=== PATIENT | female | born 2000 | race Caucasian/White ===

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

== ENCOUNTER 2020-06-13 21:40 | Emergency (ER) | payer SELFPAY ==
[~2020-06-13] VITALS: Ht 162.5 cm; Wt 58.8 kg
--- NOTE | 2020-06-13 21:52 | ED Abdominal Pain ---
General Stated Complaint: ABD/BACK PAIN,FAINT,DIZZINESS Source of Information: Patient Exam Limitations: No Limitations History of Present Illness Date Seen by Provider: Jun 13, 2020 Time Seen by Provider: 21:45 Initial Comments Patient is a 20-year-old female who presents to the emergency department today with a chief complaint of lower abdominal cramping. Patient states she had onset of symptoms 4 days ago. Patient states she had Amharic food on Tuesday night and was concerned that she might have food poisoning. Her symptoms started the following day. Patient describes the pain as coming and going. She states she started her period today and at first she thought it was menstrual cramps but she has never had pain like this before. Patient states the pain has become worse today that its caused her to feel faint and dizzy. Patient states she also has some discomfort to her left thigh. She denies states she has had some intermittent nausea but no vomiting, diarrhea. No problems with bowel or bladder. No black or tarry stools. Patient states that it does hurt in her lower abdomen to have a bowel movement and to urinate but she denies dysuria specifically. No abnormal vaginal discharge. Patient is not sexually active. She is not on control. She denies any fevers but states that she has had some cold chills. Patient tells me that she has a fraternal twin sister that was recently diagnosed with ovarian cyst. She was concerned with that. She states that the left side of her lower abdomen hurts more than the right side. Patient states that her grandmother gave her 2 Ecotrin tablets earlier in the evening and it has not helped her pain. All other review of systems reviewed and negative except as stated. Timing/Duration: 3-4 Days Severity/Quality: Cramping Location: Suprapubic Radiation: No Radiation Activities at Onset: None Associated Symptoms: Denies Symptoms Allergies and Home Medications Allergies Coded Allergies: No Known Drug Allergies (Unverified , 06/13/20) Patient Home Medication List Home Medication List Reviewed: Yes Review of Systems Review of Systems Constitutional: see HPI EENTM: No Symptoms Reported Respiratory: No Symptoms Reported Cardiovascular: No Symptoms Reported Gastrointestinal: Abdominal Pain Genitourinary: No Symptoms Reported Musculoskeletal: no symptoms reported Skin: no symptoms reported All Other Systems Reviewed Negative Unless Noted: Yes Physical Exam Vital Signs Vital Signs - First Documented 06/13/20 21:42 Temp 37.1 Pulse 107 Resp 18 B/P (MAP) 156/83 (107) Pulse Ox 99 O2 Delivery Room Air Capillary Refill : Height/Weight/BMI Height: '" Weight: lbs. oz. kg; BMI Method: General Appearance: WD/WN, mild distress HEENT: PERRL/EOMI Respiratory: lungs clear, normal breath sounds, no respiratory distress Cardiovascular: regular rate, rhythm Gastrointestinal: soft, abnormal bowel sounds (hypoactive), tenderness (Tenderness at McBurney's point, patient states that the pain is similar with direct palpation as well as moderate rebound; patient has more pronounced tenderness in the left pelvis than she does the right) Extremities: normal range of motion, non-tender, normal inspection Neurologic/Psychiatric: alert, normal mood/affect, oriented x 3 Skin: normal color, warm/dry Progress/Results/Core Measures Results/Orders Lab Results Laboratory Tests Test 06/13/20 21:44 06/13/20 21:55 Range/Units Urine Color YELLOW Urine Clarity CLEAR Urine pH 7.0 5-9 Urine Specific [place] 1.020 1.016-1.022 Urine Protein NEGATIVE NEGATIVE Urine Glucose (UA) NEGATIVE NEGATIVE Urine Ketones TRACE H NEGATIVE Urine Nitrite NEGATIVE NEGATIVE Urine Bilirubin NEGATIVE NEGATIVE Urine Urobilinogen 0.2 < = 1.0 MG/DL Urine Leukocyte Esterase NEGATIVE NEGATIVE Urine RBC (Auto) NEGATIVE NEGATIVE Urine RBC 0-2 /HPF Urine WBC 2-5 /HPF Urine Squamous Epithelial Cells 10-25 H /HPF Urine Crystals NONE /LPF Urine Bacteria TRACE /HPF Urine Casts NONE /LPF Urine Mucus LARGE H /LPF Urine Culture Indicated NO Urine Test NEGATIVE NEGATIVE White Blood Count 12.5 H 4.3-11.0 10^3/uL Red Blood Count 3.99 L 4.35-5.85 10^6/uL Hemoglobin 10.3 L 11.5-16.0 G/DL Hematocrit 32 L 35-52 % Mean Corpuscular Volume 80 80-99 FL Mean Corpuscular Hemoglobin 26 25-34 PG Mean Corpuscular Hemoglobin Concent 32 32-36 G/DL Red Cell Distribution Width 13.0 10.0-14.5 % Platelet Count 405 H 130-400 10^3/uL Mean Platelet Volume 9.8 7.4-10.4 FL Immature Granulocyte % (Auto) 0 % Neutrophils (%) (Auto) 63 42-75 % Lymphocytes (%) (Auto) 27 12-44 % Monocytes (%) (Auto) 8 0-12 % Eosinophils (%) (Auto) 1 0-10 % Basophils (%) (Auto) 1 0-10 % Neutrophils # (Auto) 7.9 H 1.8-7.8 X 10^3 Lymphocytes # (Auto) 3.4 1.0-4.0 X 10^3 Monocytes # (Auto) 1.1 H 0.0-1.0 X 10^3 Eosinophils # (Auto) 0.1 0.0-0.3 10^3/uL Basophils # (Auto) 0.1 0.0-0.1 10^3/uL Immature Granulocyte # (Auto) 0.0 0.0-0.1 10^3/uL Sodium Level 138 135-145 MMOL/L Potassium Level 3.7 3.6-5.0 MMOL/L Chloride Level 103 98-107 MMOL/L Carbon Dioxide Level 24 21-32 MMOL/L Anion Gap 11 5-14 MMOL/L Blood Urea Nitrogen 13 7-18 MG/DL Creatinine 0.69 0.60-1.30 MG/DL Estimat Glomerular Filtration Rate > 60 BUN/Creatinine Ratio 19 Glucose Level 93 70-105 MG/DL Calcium Level 9.3 8.5-10.1 MG/DL My Orders Orders - JESUS GRIMM MD Ua Culture If Indicated (06/13/20 21:58) Hcg,Qualitative Urine (06/13/20 21:58) Cbc With Automated Diff (06/13/20 21:58) Basic Metabolic Panel (06/13/20 21:58) Ct Abdomen/Pelvis W (06/13/20 21:58) Ns Iv 1000 Ml (Sodium Chloride 0.9%) (06/13/20 22:00) Ketorolac Injection (Toradol Injection) (06/13/20 22:00) Iohexol Injection (Omnipaque 350 Mg/Ml 1 (06/13/20 22:15) Received Contrast (Hold Metformin- Contr (06/13/20 22:15) Sodium Chloride Flush (Catheter Flush Sy (06/13/20 22:15) Ns (Ivpb) (Sodium Chloride 0.9% Ivpb Bag (06/13/20 22:15) Urine Bedside (06/13/20 22:04) Medications Given in ED Current Medications Medications Dose Ordered Sig/Vianney Route Start Time Stop Time Status Last Admin Dose Admin Iohexol 100 ml ONCE ONCE IV 06/13/20 22:15 06/13/20 22:16 DC 06/13/20 22:21 75 ML Ketorolac Tromethamine 15 mg ONCE ONCE IVP 06/13/20 22:00 06/13/20 22:01 DC 06/13/20 22:07 15 MG Sodium Chloride 10 ml NEEDED PRN IV 06/13/20 22:15 06/13/20 22:22 10 ML Sodium Chloride 100 ml ONCE ONCE IV 06/13/20 22:15 06/13/20 22:16 DC 06/13/20 22:21 100 ML Vital Signs/I&O 06/13/20 21:42 Temp 37.1 Pulse 107 Resp 18 B/P (MAP) 156/83 (107) Pulse Ox 99 O2 Delivery Room Air Progress Progress Note : Time: 22:00 Progress Note patient's bedside test is negative [address] results show no acute findings of the solid abdominal organs with a contracted gallbladder. She does have a small amount of liquid stool in the proximal colon as well as some mild small bowel wall thickening with some mild Bigg fluid distended small bowel. She has a normal-appearing appendix. Mild nonspecific prominence of the cervix. She does not have any abdominopelvic fluid collections. Patient has a mildly elevated white blood cell count with a normal BMP. Urine is normal as well. Patient is currently rating her pain at a "7". She states the Toradol has not really helped her at all. She does not have a concrete truck driver and cannot get a concrete truck driver to get her home. Going to send the patient home with the hydrocodone take-home pack. I have strongly advised that she call scheduling in the morning to get in and have a pelvic ultrasound in the morning. She is also going to take 800 mg of ibuprofen 3 times a day. I think that she needs reevaluated within 12 to 24 hours. She does not have any obvious large ovarian cyst but CT is not the best imaging study for this therefore the pelvic ultrasound is advised. Patient verbalized understanding and is agreeable with the plan of care. All questions have been sought and answered. Patient will be discharged to home. I discussed with the technology coach in [place] the patient coming in in the morning for an outpatient pelvic ultrasound. The patient will call between 7 and 7:30 in the morning to have her ultrasound scheduled at about 9 AM. This has been communicated to the patient. Departure Impression Primary Impression: Abdominal pain Qualified Codes: R10.32 - Left lower quadrant pain Disposition: 01 HOME, SELF-CARE Condition: Stable Departure-Patient Inst. Decision time for Depature: 23:22 Referrals: LOPEZ ZELAYA MD (PCP/Family) Primary Care Physician Patient Instructions: Abdominal Pain, Adult ED Add. Discharge Instructions: Call the Radiology Office in the morning between 7 and 7:30am for a pelvic ultrasound [phone] Take the Hydrocodone for pain, 1 every 4-6 hours. This medication may make you sleepy. Do not drive and take this medication. If you have a fever, vomiting or worse pain, come back to the Emergency Room for re-evaluation. You can also take over the counter ibuprofen 3 or 4 pills (600-800mg) every 8 hours with food for pain. JESUS GRIMM MD Jun 13, 2020 21:52
[2020-06-13] MEDS ORDERED: KETOROLAC 30 MG/ML VIAL IVP ONE (22:00)
[2020-06-13] MEDS ORDERED: NS IV 1000 ML 1,000 ML IV SCH (22:00)
[2020-06-13 22:02] LABS: BACTERIA,URINE TRACE /HPF; BILIRUBIN,URINE NEGATIVE (NEGATIVE); CLARITY,URINE CLEAR; COLOR,URINE YELLOW; GLUCOSE, URINE (UA) NEGATIVE (NEGATIVE); KETONES,URINE TRACE (NEGATIVE); LEUKOCYTE ESTERASE ,URINE NEGATIVE (NEGATIVE); NITRITE,URINE NEGATIVE (NEGATIVE); PROTEIN,URINE NEGATIVE (NEGATIVE); RBC,URINE 0-2 /HPF
[2020-06-13 22:05] LABS: BASOPHILS # (AUTO) 0.1 10^3/uL (0.0-0.1); BASOPHILS % (AUTO) 1 % (0-10); EOSINOPHILS # (AUTO) 0.1 10^3/uL (0.0-0.3); EOSINOPHILS % (AUTO) 1 % (0-10); HEMATOCRIT 32 % (35-52); HEMOGLOBIN 10.3 G/DL (11.5-16.0); LYMPHOCYTES # (AUTO) 3.4 X 10^3 (1.0-4.0); LYMPHOCYTES % (AUTO) 27 % (12-44); MEAN CORPUSCULAR HEMOGLOBIN 26 PG (25-34); MEAN CORPUSCULAR HGB CONC 32 G/DL (32-36); MEAN CORPUSCULAR VOLUME 80 FL (80-99); MEAN PLATELET VOLUME 9.8 FL (7.4-10.4); MONOCYTES # (AUTO) 1.1 X 10^3 (0.0-1.0); MONOCYTES % (AUTO) 8 % (0-12); NEUTROPHILS # (AUTO) 7.9 X 10^3 (1.8-7.8); NEUTROPHILS % (AUTO) 63 % (42-75); PLATELET COUNT 405 10^3/uL (130-400); WHITE BLOOD COUNT 12.5 10^3/uL (4.3-11.0)
[2020-06-13] MEDS ORDERED: HOLD METFORMIN - RECEIVED CONTRAST 20 ML VIAL IV SCH (22:15)
[2020-06-13] MEDS ORDERED: NS 100 ML (IVPB) BAG IV ONE (22:15)
[2020-06-13] MEDS ORDERED: CATHETER FLUSH 10 ML SYR IV PRN (22:15)
[2020-06-13] MEDS ORDERED: IOHEXOL 350 MG/ML 100 ML (OMNIPAQUE 350) VIAL IV ONE (22:15)
[2020-06-13 22:22] LABS: CHLORIDE 103 MMOL/L (98-107); POTASSIUM 3.7 MMOL/L (3.6-5.0); SODIUM 138 MMOL/L (135-145)
[2020-06-13 22:23] LABS: BUN/CREATININE RATIO 19; CALCIUM 9.3 MG/DL (8.5-10.1); CARBON DIOXIDE 24 MMOL/L (21-32); CREATININE SERUM 0.69 MG/DL (0.60-1.30); GFR ESTIMATED > 60; GLUCOSE 93 MG/DL (70-105)
[2020-06-13 23:30] VITALS: BP 134/84
[2020-06-13] MEDS ORDERED: RX-HYDROCODONE/APAP 5/325 MG #4 TAB PK PO PRN (23:30)
--- NOTE | 2020-06-14 07:25 | Diagnostic Imaging Report ---
PROCEDURE: CT abdomen and pelvis with contrast. TECHNIQUE: Multiple contiguous axial images were obtained through the abdomen and pelvis after administration of intravenous contrast. Auto Exposure Controls were utilized during the CT exam to meet ALARA standards for radiation dose reduction. All CT scans use one or more of the following dose optimizing techniques: automated exposure control, MA and/or KvP adjustment based on patient size and exam type or iterative reconstruction. Indication: Left lower quadrant pain for 3 days, pelvic pain. Comparison: None. Discussion: Lung bases are well-aerated. Normal heart size. No pleural or pericardial fluid. The gallbladder is contracted. The liver, stomach, spleen, and adrenal glands are unremarkable. There is fatty atrophy of the pancreas which is considered advanced for age and is of uncertain clinical significance. No renal stone, mass, hydronephrosis. Cyst is noted within the left kidney measuring 2 cm, benign. Aorta is normal in caliber. The appendix is normal. Uterus and urinary bladder are unremarkable. Borderline thick-walled small bowel loops, possible enteritis. No ascites or pathologically enlarged lymph nodes identified. No acute osseous abnormality identified. Impression: 1. Fatty atrophy of the pancreas which is advanced for age. This is of uncertain etiology or clinical significance. Recommend clinical correlation. 2. Mildly thick-walled small bowel loops without obstruction. This could represent mild enteritis. 3. Agree with preliminary report. Dictated by: Dictated on workstation # [id number]
== END 2020-06-13 23:30 | disposition home or self-care (01) ==
LOC: EDUNIT# 21:40 → ER FS 21:41
DX: R10.32 Left lower quadrant pain (principal)
CPT/HCPCS: 36415; 74177; 80048; 81000; 84703; 85025

== ENCOUNTER → 2020-06-14 | Outpatient (CLI) | payer SELFPAY ==
--- NOTE | 2020-06-14 10:43 | Diagnostic Imaging Report ---
PROCEDURE: US Non-ob pelvis comp/trans. TECHNIQUE: Multiple realtime grayscale images were obtained of the pelvis in various projections endovaginally. Transabdominal imaging was also performed. INDICATION: Pelvic and abdominal pain with fever The anteverted uterus measures 7.9 x 4.5 x 5.5 cm with normal endometrial thickness of 0.9 cm. There is normal blood flow to both ovaries. No adnexal mass is seen. There is mild pelvic free fluid. IMPRESSION: Mild pelvic free fluid may be physiologic. Otherwise, no ultrasound evidence of pelvic abnormality is identified. Dictated by: Dictated on workstation # [id number]
== END ==
LOC: RAD 08:58
PROVIDERS: ATTEND Emergency Medicine
DX: R10.9 Unspecified abdominal pain (principal); R10.2 Pelvic and perineal pain; R18.8 Other ascites
CPT/HCPCS: 76830; 76856

== ENCOUNTER → 2020-07-22 | Outpatient (CLI) | payer SELFPAY | LOC: LAB FS 10:28 | PROVIDERS: ATTEND Obstetrics & Gynecology | DX: R10.2 Pelvic and perineal pain (principal) | CPT/HCPCS: 36415; 84702 ==

== ENCOUNTER 2020-08-23 02:48 | Emergency (ER) | payer SELFPAY ==
[~2020-08-23] VITALS: Ht 162.5 cm; Wt 61.2 kg
[2020-08-23] MEDS ORDERED: morphine INJ 10 MG/ML 1ML (SYR OR VIAL) IM STA (03:08)
[2020-08-23] MEDS ORDERED: KETOROLAC 60 MG/2 ML VIAL IM STA (03:08)
[2020-08-23] MEDS ORDERED: LIDOCAINE 1% INJ 20 ML 20 ML VIAL INJ STA (03:23)
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
[2020-08-23] MEDS ORDERED: RX-AMOX/CLAV. (AUGMENTIN) 500MG TAB PPK#2 PO STA (04:35)
[2020-08-23] MEDS ORDERED: AMOX1TAB12 PO (04:35)
[2020-08-23 04:42] VITALS: BP 126/72
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
== END 2020-08-23 04:42 | disposition home or self-care (01) ==
LOC: EDUNIT# 02:48 → ER FS 02:52
DX: S01.312A Laceration without foreign body of left ear, initial encounter (principal); S50.02XA Contusion of left elbow, initial encounter; S40.022A Contusion of left upper arm, initial encounter; S10.91XA Abrasion of unspecified part of neck, initial encounter; V89.2XXA Person injured in unspecified motor-vehicle accident, traffic, initial encounter
CPT/HCPCS: 73060; 73080

== ENCOUNTER 2023-02-17 12:56 | Emergency (ER) | payer SELFPAY ==
[~2023-02-17] VITALS: Ht 162.5 cm; Wt 80.2 kg
[~2023-02-17 12:56] MED LIST: AMOX1TAB12 PO
--- NOTE | 2023-02-17 13:15 | ED Abdominal Pain ---
General Stated Complaint: ABD PAIN | Source of Information: Patient Exam Limitations: No Limitations History of Present Illness Date Seen by Provider: Feb 17, 2023 Time Seen by Provider: 13:13 Initial Comments Patient is a 23-year-old female presents ED with left lower quad abdominal pain. This pain started last Tuesday. Pain is described as sharp and stabbing. This pain intensified earlier this week. She states she went to [facility] due to the continuous worsening pain. Pain does not radiate. She received a ultrasound on Tuesday which showed a hemorrhagic cyst. This pain has intensified. She reports nausea without vomiting. No urinary symptoms or current vaginal bleeding. She did receive a Toradol shot. She followed back up today and felt like she was mistreated. She states someone prescribed her Percocet which she has taken with ibuprofen with very minimal improvement. She denies any fever, chills, chest pain, shortness of breath, headache, dizziness. History of ruptured cyst in the past. She does report some wet frequent vaginal discharge. No odor or vaginal bleeding. Allergies and Home Medications Allergies Coded Allergies: morphine (Verified Allergy, Mild, TOUNGE NUMBNESS, 02/17/23) Patient Home Medication List Home Medication List Reviewed: Yes Amoxicillin/Potassium Clav (Amox Tr-K Clv 875-125 mg Tab) 1 Each Tablet, 1 EACH PO BID Prescribed by: HUGO MORALES on 08/23/20 0435 Hydrocodone/Acetaminophen (Hydrocodone-Acetamin 5-325 mg) 5 Mg-325 Mg Tablet, 1 TAB PO Q4H PRN for PAIN-MODERATE (5-7) Prescribed by: KRISH COX on 02/17/23 5799 Metronidazole (Metronidazole) 500 Mg Tablet, 500 MG PO BID Prescribed by: KRISH COX on 02/17/23 1458 Review of Systems Review of Systems Constitutional: No chills, No diaphoresis, No fever, No malaise, No weakness Respiratory: Denies Cough, Denies Orthopnea Gastrointestinal: Abdominal Pain; Denies Diarrhea; Nausea; Denies Vomiting Genitourinary: Denies Burning, Denies Discharge, Denies Drainage, Denies Frequency; Other Musculoskeletal: No back pain, No joint pain Skin: No change in color, No change in hair/nails All Other Systems Reviewed Negative Unless Noted: Yes Past Lpjqmlo-Hudasp-Vfvpoi Hx Past Medical History Surgeries: No Respiratory: No Cardiac: No Neurological: No Reproductive Disorders: Yes Female Reproductive Disorders: Menstrual Problems Genitourinary: Yes (Hydrosalpinx) Gastrointestinal: No Musculoskeletal: No Endocrine: No HEENT: No Cancer: No Psychosocial: No Integumentary: No Blood Disorders: No Physical Exam Vital Signs Vital Signs - First Documented 02/17/23 13:03 Temp 36.6 Pulse 91 Resp 16 B/P (MAP) 150/86 (107) Pulse Ox 100 O2 Delivery Room Air Capillary Refill : Height/Weight/BMI Height: '" Weight: lbs. oz. kg; 23.00 BMI Method: General Appearance: WD/WN, no apparent distress HEENT: PERRL/EOMI, normal ENT inspection, TMs normal, pharynx normal Neck: non-tender, full range of motion, supple Respiratory: chest non-tender, lungs clear, normal breath sounds, no respiratory distress, no accessory muscle use Cardiovascular: regular rate, rhythm, no edema, no gallop, no JVD Gastrointestinal: normal bowel sounds, soft, no organomegaly, tenderness (Left lower quadrant tenderness. 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, no motor/sensory deficits, alert, normal mood/affect, oriented x 3 Skin: normal color, warm/dry Procedures/Interventions Suture Size: 4-0 Progress/Results/Core Measures Results/Orders Lab Results Laboratory Tests Test 02/17/23 13:15 02/17/23 13:33 02/17/23 13:34 Range/Units White Blood Count 15.9 H 4.3-11.0 10^3/uL Red Blood Count 4.38 3.80-5.11 10^6/uL Hemoglobin 13.4 11.5-16.0 g/dL Hematocrit 40 35-52 % Mean Corpuscular Volume 90 80-99 fL Mean Corpuscular Hemoglobin 31 25-34 pg Mean Corpuscular Hemoglobin Concent 34 32-36 g/dL Red Cell Distribution Width 11.5 10.0-14.5 % Platelet Count 435 H 130-400 10^3/uL Mean Platelet Volume 9.3 9.0-12.2 fL Immature Granulocyte % (Auto) 0 % Neutrophils (%) (Auto) 73 42-75 % Lymphocytes (%) (Auto) 19 12-44 % Monocytes (%) (Auto) 7 0-12 % Eosinophils (%) (Auto) 0 0-10 % Basophils (%) (Auto) 1 0-10 % Neutrophils # (Auto) 11.6 H 1.8-7.8 10^3/uL Lymphocytes # (Auto) 3.1 1.0-4.0 10^3/uL Monocytes # (Auto) 1.1 H 0.0-1.0 10^3/uL Eosinophils # (Auto) 0.0 0.0-0.3 10^3/uL Basophils # (Auto) 0.1 0.0-0.1 10^3/uL Immature Granulocyte # (Auto) 0.0 0.0-0.1 10^3/uL Neutrophils % (Manual) 76 % Lymphocytes % (Manual) 20 % Monocytes % (Manual) 2 % Eosinophils % (Manual) 0 % Basophils % (Manual) 0 % Band Neutrophils 1 % Reactive Lymphocytes 1 % Blood Morphology Comment NORMAL Sodium Level 135 135-145 MMOL/L Potassium Level 3.7 3.6-5.0 MMOL/L Chloride Level 104 98-107 MMOL/L Carbon Dioxide Level 20 L 21-32 MMOL/L Anion Gap 11 5-14 MMOL/L Blood Urea Nitrogen 10 7-18 MG/DL Creatinine 0.87 0.60-1.30 MG/DL Estimat Glomerular Filtration Rate 96 BUN/Creatinine Ratio 11 Glucose Level 89 70-105 MG/DL Calcium Level 9.9 8.5-10.1 MG/DL Corrected Calcium 8.5-10.1 MG/DL Total Bilirubin 0.4 0.1-1.0 MG/DL Aspartate Amino Transf (AST/SGOT) 29 5-34 U/L Alanine Aminotransferase (ALT/SGPT) 27 0-55 U/L Alkaline Phosphatase 61 40-136 U/L Total Protein 7.9 6.4-8.2 GM/DL Albumin 4.6 H 3.2-4.5 GM/DL Lipase 8 8-78 U/L Urine Color YELLOW Urine Clarity CLEAR Urine pH 7.0 5-9 Urine Specific [place] 1.015 L 1.016-1.022 Urine Protein NEGATIVE NEGATIVE Urine Glucose (UA) NEGATIVE NEGATIVE Urine Ketones NEGATIVE NEGATIVE Urine Nitrite NEGATIVE NEGATIVE Urine Bilirubin NEGATIVE NEGATIVE Urine Urobilinogen 0.2 < = 1.0 MG/DL Urine Leukocyte Esterase 1+ H NEGATIVE Urine RBC (Auto) NEGATIVE NEGATIVE Urine RBC NONE /HPF Urine WBC 2-5 /HPF Urine Squamous Epithelial Cells 2-5 /HPF Urine Crystals NONE /LPF Urine Bacteria FEW H /HPF Urine Casts NONE /LPF Urine Mucus NEGATIVE /LPF Urine Culture Indicated YES Urine Test NEGATIVE NEGATIVE Micro Results Microbiology 02/17/23 Wet Prep - Final, Complete My Orders Orders - CARMELO DE ANDA PA Ua Culture If Indicated (02/17/23 12:59) Hcg,Qualitative Urine (02/17/23 12:59) Cbc And Automated Diff (02/17/23 13:11) Comprehensive Metabolic Panel (02/17/23 13:11) Lipase (02/17/23 13:11) Fentanyl Injection (Fentanyl Injection (02/17/23 13:11) Ns Iv 1000 Ml (Ns Iv 1000 Ml) (02/17/23 13:11) Wet Prep (02/17/23 13:15) Neisseria Gonorrhea Swab (02/17/23 13:15) Chlamydia Trachomatis Swab (02/17/23 13:15) Manual Differential (02/17/23 13:15) Us Non Ob Pelvis Comp/Transvag (02/17/23 13:11) Urine Culture (02/17/23 13:34) Morphine Injection (Morphine Injection (02/17/23 14:30) Diphenhydramine Injection (Diphenhydram (02/17/23 14:54) Medications Given in ED Current Medications Medications Dose Ordered Sig/Vianney Route Start Time Stop Time Status Last Admin Dose Admin Diphenhydramine HCl 50 mg STK-MED ONCE .ROUTE 02/17/23 14:54 02/17/23 14:55 DC 02/17/23 14:56 25 MG Morphine Sulfate 4 mg ONCE ONCE IVP 02/17/23 14:30 02/17/23 14:31 DC 02/17/23 14:52 4 MG Vital Signs/I&O 02/17/23 02/17/23 13:03 15:31 Temp 36.6 Pulse 91 81 Resp 16 16 B/P (MAP) 150/86 (107) 126/72 Pulse Ox 100 100 O2 Delivery Room Air Room Air Departure Communication (PCP) Patient presents ED with left lower quad abdominal pain. She states she was recently diagnosed with hemorrhagic cyst with ultrasound earlier this week. Pain since Tuesday worsening pain today. Nausea vomiting without diarrhea. No specific urinary symptoms. She does report some vaginal discharge frequent. Not concern for sexual transmitted infection. Sexually active with 1 partner. Generalized lab work, wet mount, STD cultures were obtained. She was not jarod ated prophylactically. Urinalysis few bacteria +1 leukocytes without strong evidence of UTI. Culture is currently pending. Negative for . CBC showed a white blood count of 15, hemoglobin 13. Normal chemistry. Ultrasound was ordered to rule out ovarian torsion. Ultrasound did note Presumed collapsed cyst in left ovary. Color flow to both ovaries is noted with no evidence of torsion. Small amount of free fluid in the cul-de-sac. Patient received a dose of fentanyl with improvement of pain. Wet mount tested positive for clue cells concerning for bacterial vaginosis. Pain much improved at this time. Patient is not anemic or concern for active bleeding at this time. She did have episode of pain before discharge and received morphine and states she felt jittery and numbness and tingling with medication. She received 25 mg of Benadryl with improvement. Unlikely a true allergy but will put morphine on her list. She has received morphine in the past. Will discharge with Flagyl for BVat this time pending urinary culture. 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 Discussed warm compresses pain medication at this time. This should continue to improve.. If any worsening symptoms such as pain fever vomiting to return back to ED. no sexual intercourse until results. Impression Primary Impression: Ovarian cyst Disposition: HOME, SELF-CARE Condition: Stable Departure-Patient Inst. Decision time for Depature: 14:57 Referrals: LOPEZ ZELAYA MD (PCP/Family) Primary Care Physician STEFFANY GA DO Patient Instructions: Ovarian cysts Add. Discharge Instructions: Take pain medication as prescribed. Antibiotics as prescribed. If any worsen ing symptoms return back to ED. Scripts Hydrocodone/Acetaminophen (Hydrocodone-Acetamin 5-325 mg) 5 Mg-325 Mg Tablet 1 TAB PO Q4H PRN for PAIN-MODERATE (5-7), #6 TAB Prov: CARMELO DE ANDA 02/17/23 Metronidazole (Metronidazole) 500 Mg Tablet 500 MG PO BID for 7 Days, #14 TAB Prov: CARMELO DE ANDA 02/17/23 CARMELO DE ANDA Feb 17, 2023 13:15
[2023-02-17 13:21] LABS: BASOPHILS # (AUTO) 0.1 10^3/uL (0.0-0.1); BASOPHILS % (AUTO) 1 % (0-10); EOSINOPHILS % (AUTO) 0 % (0-10); HEMATOCRIT 40 % (35-52); HEMOGLOBIN 13.4 g/dL (11.5-16.0); LYMPHOCYTES # (AUTO) 3.1 10^3/uL (1.0-4.0); LYMPHOCYTES % (AUTO) 19 % (12-44); MEAN CORPUSCULAR HEMOGLOBIN 31 pg (25-34); MEAN CORPUSCULAR HGB CONC 34 g/dL (32-36); MEAN CORPUSCULAR VOLUME 90 fL (80-99); MEAN PLATELET VOLUME 9.3 fL (9.0-12.2); MONOCYTES # (AUTO) 1.1 10^3/uL (0.0-1.0); MONOCYTES % (AUTO) 7 % (0-12); NEUTROPHILS # (AUTO) 11.6 10^3/uL (1.8-7.8); NEUTROPHILS % (AUTO) 73 % (42-75); PLATELET COUNT 435 10^3/uL (130-400); WHITE BLOOD COUNT 15.9 10^3/uL (4.3-11.0)
[2023-02-17] MEDS: NS IV 1000 ML 1,000 ML IV STA (13:24)
[2023-02-17] MEDS: fentaNYL INJECTION 100 MCG/2 ML VIAL IVP STA (13:24)
[2023-02-17 13:44] LABS: BAND NEUTROPHILS 1 %; BASOPHILS % (MANUAL) 0 %; EOSINOPHILS % (MANUAL) 0 %; LYMPHOCYTES % (MANUAL) 20 %; MONOCYTES % (MANUAL) 2 %; NEUTROPHILS % (MANUAL) 76 %; REACTIVE LYMPHOCYTES 1 %
[2023-02-17 13:45] LABS: RBC MORPH NORMAL
[2023-02-17 13:52] LABS: CLARITY,URINE CLEAR; COLOR,URINE YELLOW; GLUCOSE, URINE (UA) NEGATIVE (NEGATIVE); KETONES,URINE NEGATIVE (NEGATIVE); NITRITE,URINE NEGATIVE (NEGATIVE); PROTEIN,URINE NEGATIVE (NEGATIVE)
[2023-02-17 13:52] LABS: ALBUMIN 4.6 GM/DL (3.2-4.5); CHLORIDE 104 MMOL/L (98-107); POTASSIUM 3.7 MMOL/L (3.6-5.0); SODIUM 135 MMOL/L (135-145)
[2023-02-17 13:53] LABS: BACTERIA,URINE FEW /HPF; BILIRUBIN,URINE NEGATIVE (NEGATIVE); LEUKOCYTE ESTERASE ,URINE 1+ (NEGATIVE)
[2023-02-17 13:54] LABS: CALCIUM 9.9 MG/DL (8.5-10.1)
[2023-02-17 13:55] LABS: GLUCOSE 89 MG/DL (70-105); TOTAL PROTEIN 7.9 GM/DL (6.4-8.2)
[2023-02-17 13:56] LABS: CARBON DIOXIDE 20 MMOL/L (21-32)
[2023-02-17 13:57] LABS: BILIRUBIN,TOTAL 0.4 MG/DL (0.1-1.0)
[2023-02-17 13:58] LABS: ALKALINE PHOSPHATASE 61 U/L (40-136); CREATININE SERUM 0.87 MG/DL (0.60-1.30); GFR ESTIMATED 96
[2023-02-17 13:59] LABS: BUN/CREATININE RATIO 11
[2023-02-17 14:01] LABS: ALANINE AMINOTRANSFERASE 27 U/L (0-55)
[2023-02-17 14:02] LABS: LIPASE 8 U/L (8-78)
--- NOTE | 2023-02-17 14:42 | Diagnostic Imaging Report ---
INDICATION: Left lower quadrant abdominal pain, history of ovarian cyst. TECHNIQUE: Pelvic sonography performed with transabdominal views and transvaginal views. FINDINGS: The uterus measured 8.1 x 4.1 x 5.0 cm. Uterus is anteverted. Endometrium measured 7 mm. There is no focal uterine lesion. The right ovary measured 3.0 x 2.1 x 2.3 cm and appeared normal containing normal color flow. The left ovary measured 3.9 x 3.5 x 2.8 cm. There appears to be a collapsed cyst in the left ovary measuring 1.3 x 1.0 x 0.8 cm. There is preserved color flow to the left ovary. There is a trace of free fluid in the posterior cul-de-sac. IMPRESSION: Presumed collapsed cyst in left ovary. Color flow to both ovaries is noted with no evidence of torsion. Small amount of free fluid in the cul-de-sac. Dictated by: Dictated on workstation # [id number]
[2023-02-17] MEDS: morphine INJ 10 MG/ML 1ML (SYR OR VIAL) IVP ONE (14:52)
[2023-02-17] MEDS: diphenhydrAMINE INJ 50 MG/ML VIAL ONE (14:56)
[2023-02-17] MEDS ORDERED: METR-145 PO (14:58)
[2023-02-17] MEDS ORDERED: ACHD5005 PO (14:58)
[2023-02-17 15:31] VITALS: BP 126/72
== END 2023-02-17 15:31 | disposition home or self-care (01) ==
LOC: EDUNIT# 12:56 → ER 12:58
DX: N83.202 Unspecified ovarian cyst, left side (principal)
CPT/HCPCS: 36415; 76830; 76856; 80053; 81000; 83690; 84703; 85007; 85027; 87077; 87088; 87210; 87491; 87591